=== PATIENT | male | born 1970 | race American Indian/Alaskan Native ===

== ENCOUNTER 2017-04-18 00:01 | Emergency (ER) | payer MEDICAID ==
[2017-04-18] MEDS ORDERED: NACL 0.9% 0 ML IR ONE (02:45)
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
[2017-04-18] MEDS ORDERED: TORADOL IM ONE (03:20)
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
[2017-04-18] MEDS ORDERED: TETRACAINE 0.5% ONE (06:03)
[2017-04-18] MEDS ORDERED: FUL-GLO OP ONE ×2 (06:03→06:05)
[2017-04-18] MEDS ORDERED: TETRACAINE 0.5% OU ONE (06:05)
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
[2017-04-18 07:39] VITALS: BP 133/89
== END 2017-04-18 07:39 | disposition home or self-care (01) ==
LOC: ED 00:01
DX: S02.80XA Fracture of other specified skull and facial bones, unspecified side, initial encounter for closed fracture (principal); S01.111A Laceration without foreign body of right eyelid and periocular area, initial encounter; R51 Headache; Y04.2XXA Assault by strike against or bumped into by another person, initial encounter; Y93.89 Activity, other specified; Y99.8 Other external cause status; Y92.89 Other specified places as the place of occurrence of the external cause
CPT/HCPCS: 70450; 70480; 96372